=== PATIENT | female | born 1985 | race Caucasian/White ===

== ENCOUNTER 2023-10-04 13:57 | Outpatient (RCR) | payer OTHER, SELFPAY | END 2023-10-04 23:59 | disposition home or self-care (01) | LOC: RPT 13:57 | PROVIDERS: ATTENDING PHYSICIAN Obstetrics & Gynecology | DX: N94.12 Deep dyspareunia (principal); R10.2 Pelvic and perineal pain; N39.3 Stress incontinence (female) (male); N39.41 Urge incontinence; M62.81 Muscle weakness (generalized); R27.8 Other lack of coordination; Z73.6 Limitation of activities due to disability | CPT/HCPCS: 97110; 97140; 97162; 97530 ==

== ENCOUNTER 2023-10-28 13:57 | Outpatient (RCR) | payer OTHER, SELFPAY | END 2023-10-28 23:59 | disposition home or self-care (01) | LOC: RPT 13:57 | PROVIDERS: ATTENDING PHYSICIAN Obstetrics & Gynecology | DX: R10.2 Pelvic and perineal pain (principal); M62.89 Other specified disorders of muscle; N39.3 Stress incontinence (female) (male); N39.41 Urge incontinence; Z73.6 Limitation of activities due to disability; M62.81 Muscle weakness (generalized); R27.8 Other lack of coordination | CPT/HCPCS: 97110; 97140; 97530 ==

== ENCOUNTER 2023-11-28 13:15 | Outpatient (RCR) | payer OTHER, SELFPAY | END 2023-11-28 23:59 | disposition home or self-care (01) | LOC: RPT 13:15 | PROVIDERS: ATTENDING PHYSICIAN Obstetrics & Gynecology | DX: R10.2 Pelvic and perineal pain (principal); M62.89 Other specified disorders of muscle; N39.3 Stress incontinence (female) (male); N39.41 Urge incontinence; Z73.6 Limitation of activities due to disability; M62.81 Muscle weakness (generalized); R27.8 Other lack of coordination | CPT/HCPCS: 97110; 97140; 97530 ==

== ENCOUNTER 2023-12-09 13:27 | Outpatient (RCR) | payer OTHER, SELFPAY | END 2023-12-09 23:59 | disposition home or self-care (01) | LOC: RPT 13:27 | PROVIDERS: ATTENDING PHYSICIAN Obstetrics & Gynecology | DX: R10.2 Pelvic and perineal pain (principal); M62.89 Other specified disorders of muscle; N39.3 Stress incontinence (female) (male); N39.41 Urge incontinence; Z73.6 Limitation of activities due to disability; M62.81 Muscle weakness (generalized); R27.8 Other lack of coordination | CPT/HCPCS: 97110; 97140 ==

== ENCOUNTER → 2023-12-23 14:12 | Outpatient (REF) | payer OTHER, SELFPAY | LOC: RAD 14:12 | PROVIDERS: ATTENDING PHYSICIAN Urology; FAMILY PHYSICIAN Family Medicine | DX: N30.10 Interstitial cystitis (chronic) without hematuria (principal); M62.89 Other specified disorders of muscle | CPT/HCPCS: 76770; 76856 ==

== ENCOUNTER → 2024-01-18 10:07 | Outpatient (REF) | payer OTHER, SELFPAY | LOC: RAD 10:07 | PROVIDERS: ATTENDING PHYSICIAN Nurse Practitioner; FAMILY PHYSICIAN Family Medicine | DX: G57.00 Lesion of sciatic nerve, unspecified lower limb (principal) | CPT/HCPCS: 76882 ==

== ENCOUNTER 2024-01-20 13:10 | Outpatient (RCR) | payer OTHER, SELFPAY | END 2024-01-20 23:59 | disposition home or self-care (01) | LOC: RPT 13:10 | PROVIDERS: ATTENDING PHYSICIAN Obstetrics & Gynecology | DX: R10.2 Pelvic and perineal pain (principal); N39.41 Urge incontinence; M27.8 Other specified diseases of jaws; M62.81 Muscle weakness (generalized); Z73.6 Limitation of activities due to disability | CPT/HCPCS: 97140; 97530 ==

== ENCOUNTER 2024-01-23 06:16 | Day surgery (SDC) | payer OTHER, SELFPAY ==
[2024-01-23] VITALS (18 sets, daily range): BP systolic 91–127; BP diastolic 61–87; BMI 22.7
[2024-01-23] MEDS: NORMOSOL-R 1000 IV (06:38)
[2024-01-23 06:55] LABS: Hematocrit 39.7 % (37.0-47.0); Hemoglobin 13.7 g/dL (12.0-16.0); Mean Corp Hgb Conc. 34.5 g/dL (33.0-37.0); Mean Corpuscular Hgb 29.6 pg (27.0-31.0); Mean Corpuscular Volume 85.7 fL (81.0-99.0); Mean Platelet Volume 9.5 fL (7.4-10.4); Platelet Count 230 10^3/uL (130-400); Red Blood Cell Count 4.63 10^6/uL (4.20-5.40); Red Cell Dist. Width 12.9 % (11.5-14.5); White Blood Cell Count 7.4 10^3/uL (4.8-10.8)
[2024-01-23 07:00] LABS: Blood Urea Nitrogen 23 mg/dl (7-17); Calcium 9.5 mg/dl (8.4-10.2); Carbon Dioxide 28 mmol/L (22-30); Chloride 103 mmol/L (98-107); Estimated Creatinine Clearance 95 ml/min; Glucose 96 mg/dl (70-99); Potassium 3.7 mmol/L (3.5-5.1); Sodium 138 mmol/L (135-145); eGFR > 60.00
[2024-01-23] MEDS: DILAUDID 0.25 MG IV ×4 (08:20→09:03)
[2024-01-23] MEDS: Pyridium 200 MG PO (08:34)
[2024-01-23] MEDS: PEPCID 20 MG IV (09:15)
[2024-01-23] MEDS: VERSED 2 MG IV (09:16)
== END 2024-01-23 10:54 | disposition home or self-care (01) ==
LOC: SDS 06:16
PROVIDERS: ATTENDING PHYSICIAN Urology; OTHER PHYSICIAN Obstetrics & Gynecology
DX: N30.11 Interstitial cystitis (chronic) with hematuria (principal); R93.89 Abnormal findings on diagnostic imaging of other specified body structures
CPT/HCPCS: 52260; 58100; 88305; 80048; 85027; 88342

== ENCOUNTER 2024-02-10 13:28 | Outpatient (RCR) | payer OTHER, SELFPAY | END 2024-02-10 23:59 | disposition home or self-care (01) | LOC: RPT 13:28 | PROVIDERS: ATTENDING PHYSICIAN Obstetrics & Gynecology | DX: R10.2 Pelvic and perineal pain (principal); M62.89 Other specified disorders of muscle; N30.10 Interstitial cystitis (chronic) without hematuria; N39.41 Urge incontinence; Z73.6 Limitation of activities due to disability; M62.81 Muscle weakness (generalized); R27.8 Other lack of coordination | CPT/HCPCS: 97110; 97530 ==

== ENCOUNTER 2024-03-23 14:21 | Outpatient (RCR) | payer OTHER, SELFPAY | END 2024-03-23 23:59 | disposition home or self-care (01) | LOC: RPT 14:21 | PROVIDERS: ATTENDING PHYSICIAN Obstetrics & Gynecology | DX: N94.12 Deep dyspareunia (principal); N39.3 Stress incontinence (female) (male); R10.2 Pelvic and perineal pain; Z73.6 Limitation of activities due to disability | CPT/HCPCS: 97140; 97530 ==

== ENCOUNTER → 2024-04-04 13:00 | Outpatient (REF) | payer OTHER, SELFPAY | LOC: RAD 13:00 | PROVIDERS: ATTENDING PHYSICIAN Obstetrics & Gynecology; FAMILY PHYSICIAN Family Medicine | DX: N83.299 Other ovarian cyst, unspecified side (principal) | CPT/HCPCS: 76830; 76856 ==

== ENCOUNTER 2024-07-24 06:06 | Day surgery (SDC) | payer OTHER, SELFPAY ==
[2024-07-18 10:54] VITALS: BMI 21.0
[2024-07-18 11:39] LABS: Hematocrit 41.3 % (37.0-47.0); Hemoglobin 13.5 g/dL (12.0-16.0); Mean Corp Hgb Conc. 32.7 g/dL (33.0-37.0); Mean Corpuscular Volume 88.8 fL (81.0-99.0); Mean Platelet Volume 9.9 fL (7.4-10.4); Platelet Count 217 10^3/uL (130-400); Red Blood Cell Count 4.65 10^6/uL (4.20-5.40); Red Cell Dist. Width 13.1 % (11.5-14.5); White Blood Cell Count 4.7 10^3/uL (4.8-10.8)
[2024-07-18 14:05] LABS: Blood Urea Nitrogen 26 mg/dl (7-17); Calcium 9.2 mg/dl (8.4-10.2); Carbon Dioxide 30 mmol/L (22-30); Chloride 101 mmol/L (98-107); Estimated Creatinine Clearance 84 ml/min; Glucose 84 mg/dl (70-99); Potassium 4.2 mmol/L (3.5-5.1); Sodium 143 mmol/L (135-145); eGFR > 60.00
[2024-07-24] VITALS (9 sets, daily range): BP systolic 86–104; BP diastolic 42–67; BMI 21.0
[2024-07-24] MEDS: Pyridium 200 MG PO (06:07)
[2024-07-24] MEDS: DILAUDID 0.25 MG IV (09:42)
[2024-07-24] MEDS: ROXICODONE 5 MG PO (10:51)
== END 2024-07-24 11:45 | disposition home or self-care (01) ==
LOC: SDS 06:06
PROVIDERS: ATTENDING PHYSICIAN Obstetrics & Gynecology; FAMILY PHYSICIAN Family Medicine; OTHER PHYSICIAN Urology
DX: N30.10 Interstitial cystitis (chronic) without hematuria (principal); G89.29 Other chronic pain; R10.2 Pelvic and perineal pain; N83.12 Corpus luteum cyst of left ovary; Z98.84 Bariatric surgery status
CPT/HCPCS: 58662; 49321; 52260; 88305; 36415; 80048; 85027; 86850; 86900; 86901

== ENCOUNTER → 2024-12-07 06:45 | Outpatient (REF) | payer BC, SELFPAY | LOC: PAVMRI 06:45 | PROVIDERS: ATTENDING PHYSICIAN Psychiatry & Neurology Neurology; FAMILY PHYSICIAN Family Medicine; REFERRING PHYSICIAN Surgery | DX: M70.72 Other bursitis of hip, left hip (principal); M54.12 Radiculopathy, cervical region; K44.0 Diaphragmatic hernia with obstruction, without gangrene | CPT/HCPCS: 71046; 72050; 73721 ==

== ENCOUNTER 2025-03-27 17:14 | Emergency (ER) | payer BC, SELFPAY ==
[2025-03-27 17:20] VITALS: BP 111/79
[2025-03-27 17:39] LABS: Hematocrit 44.9 % (37.0-47.0); Hemoglobin 15.1 g/dL (12.0-16.0); Mean Corp Hgb Conc. 33.6 g/dL (33.0-37.0); Mean Corpuscular Volume 86.7 fL (81.0-99.0); Nucleated Red Blood Cells % 0 %; Platelet Count 234 10^3/uL (130-400); Red Cell Dist. Width 13.0 % (11.5-14.5)
[2025-03-27 17:52] LABS: HCG, Serum Qualitative Screen Negative
[2025-03-27 17:58] LABS: ALT (SGPT) 23 U/L (0-35); AST (SGOT) 23 U/L (14-36); Albumin 4.8 g/dl (3.5-5.0); Alkaline Phosphatase 64 U/L (38-126); Blood Urea Nitrogen 16 mg/dl (7-17); Calcium 9.7 mg/dl (8.4-10.2); Carbon Dioxide 29 mmol/L (22-30); Chloride 103 mmol/L (98-107); Glucose 94 mg/dl (70-99); Potassium 4.7 mmol/L (3.5-5.1); Sodium 138 mmol/L (135-145); Total Protein 7.1 g/dl (6.3-8.2); eGFR > 60.00
[2025-03-27 19:10] VITALS: BMI 22.1
--- NOTE | 2025-03-27 19:14 | ED.GENMED ---
History of Present Illness
General
Chief Complaint: Gynecological Problem
Source: patient
Exam Limitations: none
Time Seen by Provider: 03/27/25 19:13
Nursing documentation reviewed up to this point in time: agreed with
History of Present Illness
History of Present Illness:
39 yo female w h/o GERD, Hiatal Hernia, PUD w perforation and repair, Gastric bypass, Interstitial cystitis w Cysto-hydrodistention of the bladder 07/29, iron deficiency anemia, PTSD, ADHD, cholecystectomy, endometriosis presents with acute onset
severe cramping and stabbing pain in the left lower quadrant, described as being located near the left ovary. The pain began suddenly while driving and was severe enough to necessitate returning home and seeking assistance from her . There
was associated nausea but no vomiting, fever, or chills. 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 Her last menstrual period involved just a day of spotting on March 13, and her
next period is expected in a week. She does not have any intrauterine device, nor is she on control. Denies UTI symptoms. She gets cysto hydrodistention q 6 mos, last was last month.
Past History
Past History
ED Past Medical History: Other (GERD, Hiatal Hernia, PUD w perforation and repair, Gastric bypass, Interstitial cystitis w Cysto-hydrodistention of the bladder 07/29, iron deficiency anemia, PTSD, ADHD, endometriosis )
ED Past Surgical History: Cholecystectomy
Social History
Tobacco: Non-smoker
Personal:
Living: with family
Review of Systems
Review of Systems
Allergies reviewed?: Yes
All Other Systems: ROS reviewed and negative except as documented in HPI and ROS
Constitutional: Denies fever
ABD/GI: Reports abdominal pain and nausea; Denies vomiting, diarrhea or constipated
: Denies dysuria, frequency or difficulty voiding
Phy Exam
Physical Exam
Physical Exam:
GENERAL: No acute distress. A&Ox3.
CONSTITUTIONAL: Afebrile.
EYES: clear, conjunctivae normal
ENMT: moist mucus membranes
RESPIRATORY: Regular respirations, nonlabored, lungs clear.
CARDIOVASCULAR: Regular rate and rhythm, no murmurs, no rubs.
GI: Soft, mildly tender LLQ, normal BS
MUSCULOSKELETAL: Moves with ease. Well perfused.
SKIN: Warm, dry, pink
PSYCH: Normal mood and affect. Well kept, interactive and appropriate
NEUROLOGIC: Awake, alert and oriented. No focal neurological deficits
Course
Orders/Labs/Results
Orders:
Orders
03/27/25 17:25
Test Result ONCE
03/27/25 17:27
US Pelvis [US Pelvis Only (non-obstetric)] Urgent
Comment:
Reason For Exam: L sided pelvic pain
03/27/25 17:33
Complete Blood Count/With Diff Urgent
03/27/25 17:34
Comprehensive Metabolic Panel Urgent
HCG, Serum Qualitative Screen Urgent
Abnormal Lab Results
03/27/25
17:34
Total Bilirubin 1.5 H mg/dl
(0.2-1.3)
03/27/25 17:33
03/27/25 17:34
Vital Signs
Initial and Last Documented VS:
Initial Vital Signs
Temp Pulse Resp BP Pulse Ox
98.1 F 86 16 111/79 100
03/27/25 17:20 03/27/25 17:20 03/27/25 17:20 03/27/25 17:20 03/27/25 17:20
Last Documented Vital Signs
Temp Pulse Resp BP Pulse Ox
98.1 F 70 16 105/74 100
03/27/25 17:20 03/27/25 19:17 03/27/25 17:20 03/27/25 19:17 03/27/25 19:19
MDM/Problems Addressed
Differential Diagnosis Includes:
1. Ruptured ovarian cyst
2. Ectopic
3. Appendicitis
4. Pelvic inflammatory disease
5. Ovarian torsion
MDM/Problems Addressed:
39 yo female w h/o GERD, Hiatal Hernia, PUD w perforation and repair, Gastric bypass, Interstitial cystitis w Cysto-hydrodistention of the bladder 07/29, iron deficiency anemia, PTSD, ADHD, cholecystectomy, endometriosis presents with acute onset
severe cramping and stabbing pain in the left lower quadrant, described as being located near the left ovary. The pain began suddenly while driving and was severe enough to necessitate returning home and seeking assistance from her . There
was associated nausea but no vomiting, fever, or chills. 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 Her last menstrual period involved just a day of spotting on March 13, and her
next period is expected in a week. She does not have any intrauterine device, nor is she on control. Denies UTI symptoms. She gets cysto hydrodistention q 6 mos, last was last month.
Just started Spironolactone 4 days ago for elevated Testosterone levels.
CBC, CMP unremarkable
HCG neg
US radiology report read: 1. Unremarkable transabdominal only pelvic ultrasound as described. Given the patient's symptoms, color Doppler and duplex interrogation was performed demonstrating arterial and venous flow to both ovaries.
Pt remains comfortable, pain minimal. Copy of all results given to her.
Stable for discharge
*Pulse Oximetry
SaO2: 100
Oxygen Mode of Delivery: Room air
Patient hypoxic: not evaluated
*Critical Care Note
Total Time (30-74mins, 75-104mins- exclusive of procedures): Not Applicable
ED Attending Note
-
Portions of this chart may have been created with voice recognition software.� Occasional wrong word or��sound alike� substitutions may have occurred due to the inherent limitations of voice recognition software.
Discharge Plan
Departure
Patient Disposition: Home (Routine Discharge)
Date of Disposition: 03/27/25
Time of Disposition: 19:34
Patient with high blood pressure during this ER visit?: No
Condition: Good
Discharge Problem:
Abdominal pain, acute, left lower quadrant
Instructions: Abdominal pain in adults - Discharge instructions
Prescriptions:
No Action
dextroamphetamine-amphetamine [Adderall] 5 mg Tablet
5 mg PO DAILY
omeprazole 20 mg Tablet,Delayed Release (Dr/Ec)
20 mg PO BID
Wegovy 0.5 mg/0.5 mL Pen Injector
1.7 mg SC FR
cetirizine [Zyrtec] 10 mg Tablet
10 mg PO DAILY
amitriptyline 10 mg Tablet
10 mg PO HS
Dim Sgs+
1 cap PO DAILY
Nutrafol
2 cap PO BID
Probiotic
1 cap PO DAILY
testosterone
1 pellet SC [id number]
fluticasone propionate [Flovent HFA] 44 mcg/actuation Hfa Aerosol Inhaler
2 puff INHALATION PRN PRN (Reason: SOB, Wheezes)
albuterol sulfate 90 mcg/actuation Hfa Aerosol Inhaler
2 puff INHALATION PRN PRN (Reason: SOB, Wheezes)
Referrals:
Your [facility] Provider [Other] - As needed
Activity Restrictions/Additional Instructions:
As we discussed, nothing worrisome in your workup here today. Specifically the ultrasound shows nothing abnormal.
Interventions
Interventions:
*Risk Screen - Suicide Last Done: 03/27/25 17:20
*General Assessment Last Done: 03/27/25 17:20
*Neglect/Abuse Screening Last Done: 03/27/25 19:45
*ED- Fall Risk Assessment Last Done: 03/27/25 19:10
*ED COVID-19 Vaccine History Last Done: 03/27/25 19:10
*Nursing Disposition Last Done: 03/27/25 19:45
ED-Female Genitourinary Assessment Last Done: 03/27/25 19:10
Discharge Date and Time
Discharge Date/Time: 03/27/25 19:45
Print Language: BULGARIAN
[2025-03-27 19:16] VITALS: BP 105/74
[2025-03-27 19:17] VITALS: BP 105/74
== END 2025-03-27 19:45 | disposition home or self-care (01) ==
LOC: EMR 17:14
PROVIDERS: EMERGENCY PHYSICIAN Student in an Organized Health Care Education/Training Program; FAMILY PHYSICIAN Family Medicine
DX: R10.32 Left lower quadrant pain (principal); R11.0 Nausea; R10.2 Pelvic and perineal pain; K21.9 Gastro-esophageal reflux disease without esophagitis; K44.9 Diaphragmatic hernia without obstruction or gangrene; D50.9 Iron deficiency anemia, unspecified; N83.209 Unspecified ovarian cyst, unspecified side; F43.10 Post-traumatic stress disorder, unspecified; J45.909 Unspecified asthma, uncomplicated; F90.9 Attention-deficit hyperactivity disorder, unspecified type; Z98.84 Bariatric surgery status; Z87.11 Personal history of peptic ulcer disease; Z90.49 Acquired absence of other specified parts of digestive tract; Z88.6 Allergy status to analgesic agent; Z88.1 Allergy status to other antibiotic agents
CPT/HCPCS: 99284; 76856; 80053; 84703; 85025

== ENCOUNTER 2025-06-21 06:15 | Day surgery (SDC) | payer BC, SELFPAY | END 2025-06-21 13:49 | disposition home or self-care (01) | LOC: GI 06:15 | PROVIDERS: ATTENDING PHYSICIAN Internal Medicine Gastroenterology; FAMILY PHYSICIAN Internal Medicine | DX: D50.9 Iron deficiency anemia, unspecified (principal); D12.3 Benign neoplasm of transverse colon; K64.8 Other hemorrhoids; K44.9 Diaphragmatic hernia without obstruction or gangrene; Z98.84 Bariatric surgery status | CPT/HCPCS: 45385; 43239; 88305 ==